=== PATIENT | male | born 1990 | race Caucasian/White ===

== ENCOUNTER 2019-03-30 20:04 | Emergency (ER) | payer OTHER ==
[2019-03-30 21:02] LABS: #Basophils 0.1 thou/uL (0.0-0.2); #Eosinphils 0.1 thou/uL (0.0-0.7); #Lymphocytes 2.3 thou/uL (1.20-3.40); #Monocytes 0.8 thou/uL (0.11-0.59); %Basophils 0.8 % (0.0-1.0); %Eosinophils 1.4 % (0.0-10.0); %Lymphocytes 31.4 % (21.0-51.0); %Monocytes 10.4 % (0.0-10.0); Hemoglobin 14.9 g/dL (14.0-18.0); Mean Corpuscular HGB CONC 32.5 g/dL (32.0-36.0); Mean Corpuscular Volume 89.3 fL (78.0-98.0); Mean Platelet Volume 6.7 fL (7.4-10.4); Platelet Count 438 thou/uL (130-400); Red Blood Cell (RBC) Count 5.13 mill/uL (4.70-6.10); White Blood Cell (WBC) Count 7.2 thou/uL (4.8-10.8)
[2019-03-30 21:21] LABS: ALT (SGPT) 73 U/L (8-55); AST (SGOT) 39 U/L (5-34); Albumin 4.1 g/dL (3.5-5.0); Alkaline Phosphatase 62 U/L (40-150); Anion Gap 14 mmol/L (10-20); BUN (Urea Nitrogen) 12 mg/dL (8.9-20.6); Bilirubin, Total 0.5 mg/dL (0.2-1.2); Calc. Creatinine Clearance 0 mL/min (70-130); Calcium 9.4 mg/dL (7.8-10.44); Carbon Dioxide 26 mmol/L (22-29); Chloride 103 mmol/L (98-107); Estimated GFR-MDRD Greater than 90; Glucose 96 mg/dL (70-105); Protein, Total 7.1 g/dL (6.0-8.3); Sodium 139 mmol/L (136-145)
--- NOTE | 2019-03-30 21:30 | ULT ---
ULTRASOUND SOFT TISSUE CHEST WALL: HISTORY: Bilateral nipples ripped off. Drainage from nipple area. Rule out abscess. FINDINGS: Sonographic evaluation of the region of the nipples demonstrates no evidence of well loculated fluid collections to suggest abscess formation. There is heterogeneity noted in these regions, which may be due to phlegmonous change. POS: [facility]
--- NOTE | 2019-03-30 22:57 | ULT ---
BILATERAL TESTICULAR ULTRASOUND WITH MOORE-SCALE AND COLOR-FLOW AND SPECTRAL DOPPLER IMAGING: HISTORY: Bilateral testicular pain, more on the left side. FINDINGS: The right testis measures 3.6 x 2 x 2.7 cm, and the left testis measures 3.8 x 3.1 x 2.2 cm. The rig ht epididymis measures 1.2 x 0.8 x 1.1 cm, and the left epididymis measures 1.8 x 1.4 x 1.9 cm. There is edema in the scrotal wall. A complex hydrocele is seen in the left testis. Increased flow is noted to the left epididymis. There is symmetric blood flow to both testes. No right-sided hydro matt is seen. No testicular mass is seen. IMPRESSION: Findings suspicious for left-sided epididymitis. Urologic consultation is recommended. POS: [facility]
[2019-03-30] MEDS ORDERED: Bacitracin 1 PK ONE (23:27)
[2019-03-30] MEDS ORDERED: cefTRIAXone\\ROCEPHIN 250 MG VIAL ONE (23:27)
[2019-03-30] MEDS ORDERED: Azithromycin 250 MG TAB ONE (23:27)
[2019-03-30] MEDS ORDERED: Lidocaine 1% PF 5 ML VIAL ONE (23:27)
[2019-03-30] MEDS ORDERED: HYDROcodone/Acetaminophen 10/325 mg Tablet ONE (23:50)
== END 2019-03-30 23:50 ==
LOC: ERS 20:04 → EEVIPCON 20:04 → ERS 23:50
DX: R07.89 Other chest pain (principal); N45.1 Epididymitis; L08.89 Other specified local infections of the skin and subcutaneous tissue; Y04.0XXA Assault by unarmed brawl or fight, initial encounter
CPT/HCPCS: 36415; 76870; 80053; 85025; 87070; 87077; 87186; 87205; 93976; 96372; J0696; J2001